=== PATIENT | male | born 1960 | race African-American/Black ===

== ENCOUNTER 2016-11-07 09:56 | Inpatient (IN) ==
[2016-11-07] MEDS ORDERED: methylPREDNISolone SOD SUC 125 MG/2 ML VIAL IV STA (10:44)
[2016-11-07] MEDS ORDERED: LEVOFLOXACIN INJ 500 MG in PREMIX 1 EACH IV STA (10:44)
[2016-11-07] MEDS ORDERED: ALBUTEROL/IPRATROPIUM 3 ML NEB RESP TX STA ×2 (10:44→12:06)
[2016-11-07 10:49] LABS: Basophils # 0.1 10*3/uL (0.0-0.2); Basophils % 0.5 % (0.0-0.8); Eosinophils % 0.4 % (0.00-10.9); Hematocrit 43.2 VOL% (42.0-52.0); Immature Granulocytes % 0.5 %; Immature Granulocytes Absolute 0.05 #; Lymphocytes # 1.7 10*3/uL (1.4-4.0); Lymphocytes % 15.9 % (21.2-54.2); Mean Corpuscular HGB Conc 32.4 GM/DL (32-36); Mean Corpuscular Hemoglobin 28 PG (27-34); Mean Corpuscular Volume 85.5 FL (87-102); Mean Platelet Volume 10.7 FL (9.6-12.0); Monocytes # 1.1 10*3/uL (0.11-0.8); Monocytes % 10.3 % (1.7-12.7); Neutrophils # 7.9 10*3/uL (1.4-7.4); Neutrophils % 72.4 % (38.7-73.9); Platelet Count 168 T/CUMM (130-400); Red Blood Count 5.05 MC/CUMM (3.8-5.5)
[2016-11-07] MEDS ORDERED: LEVOFLOXACIN INJ 100 ML IV ONE (10:50)
[2016-11-07] MEDS ORDERED: methylPREDNISolone SOD SUC 125 MG/2 ML VIAL ONE (10:50)
--- NOTE | 2016-11-07 10:50 | EKG Report ---
Stationary ECG Study [facility] ER Test Date: 11/07/2016 10:48:21 AM Pat Name: CLARK SALCEDO Department: Room: Gender: M Vp: : 1960 Requested by: Jason Chun Order Number: [id number] Reading MD: MOHINDER DONATO Intervals [place] Rate: 97 P: 83 TN: 136 QRS: 200 QRSD: 122 T: 97 QT: 342 QTc: 396 Interpretive Statements SINUS RHYTHM at 97 bpm INDETERMINATE AXIS RIGHT BUNDLE BRANCH BLOCK Electronically Signed On 11-10-16 12:22:50 CDT by MOHINDER DONATO [email or web address]
--- NOTE | 2016-11-07 11:22 | Emergency Department Note ---
David Valdez Manpreet, am scribing for, and in the presence of, Jason Brownlee MD 10:49. Kem Valdez Phillip K, MD, personally performed the services described in this documentation, ascribed by Stone Hernandez in my presence, and it is both accurate and complete . Arrival - Arrival Chief Complaint: Shortness of Breath Stated Complaint: trouble breathing,chills,sweats ED Nursing Triage Note: PT C/O BODY ACHES, CHILLS, SWEATS, AND DIFFICULTY BREATHING SINCE SATURDAY. AUDIBLE WHEEZING NOTED. Mode of Arrival: Ambulatory Limitations: No Limitations Source: Patient Time Seen by Provider: 11/07/16 10:18 - History of Present Illness HPI Narrative: Pt is a 56 y/o male, with PMHx of HTN, HLD, COPD, bronchitis, and GERD, who presents to the ED with CC of SOB onset 11/02/16 that has been worsening since. Pt also c/o M[place], cough, fever, diaphoresis, and back pain. Pt reports of taking breathing treatments at home qd but also continued smoking cigarettes. Pt recorded a body temperature of 98.8 F during triage. Pt's PCP is Dr. Carpenter. 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 No other pains/complaints reported to the ED. Onset (ago): day(s) (11/02/16) Consistency: constant Severity: mild Allergies/Adverse Reactions: Allergies Allergy/AdvReac Type Severity Reaction Status Date / Time No Known Allergies Allergy Verified 11/07/16 10:07 Home Medications: Home Medications Medication Instructions Recorded Confirmed Type Ipratropium/Albuterol Inhaler 2 puff INH BID 03/22/16 11/07/16 History [Combivent Respimat Inhaler] Albuterol Sulfate [Ventolin HFA] 2 puff INH BID 04/24/16 11/07/16 History Atorvastatin [Lipitor] 20 mg PO QAM 11/07/16 11/07/16 History Omeprazole [Prilosec] 20 mg PO QAM 11/07/16 11/07/16 History Sertraline [Zoloft] 100 mg PO QAM 11/07/16 11/07/16 History Tamsulosin [Flomax] 0.4 mg PO QAM 11/07/16 11/07/16 History Umeclidinium Brm/Vilanterol Tr 1 puff INH [facility] 11/07/16 11/07/16 History [Anoro Ellipta] amLODIPine [Norvasc] 5 mg PO [facility] 11/07/16 11/07/16 History Review of System - Review of System 12 point system: reviewed and no additional remarkable complaints except as stated - Review of System Constitutional: Present: chills, diaphoresis, fever Respiratory: Present: cough (Dry cough), respiratory distress, wheezing Cardiovascular: Present: dyspnea on exertion. Absent: chest pain Gastrointestinal: Absent: abdominal pain, nausea, vomiting, diarrhea Genitourinary male: Absent: dysuria Musculoskeletal: Present: back pain Neurological: Absent: headache, weakness, numbness, paresthesias Medical,Surgical,& Family Hx - Medical History Cardio: History of: Hypertension No history of: Cardiac Dysrhythmia, [place] Psychological: History of: Depression Neurology: No history of: Seizures Endocrine: History of: Dyslipidemia Respiratory: History of: Bronchitis, COPD No history of: Obstructive Sleep Apnea Genitourinary: No history of: Prostate Problems Gastrointestinal: History of: GERD, GI Problems (rectal bleeding) No history of: Hepatitis, Liver Problems Musculoskeletal: History of: Amputation (left bka from trauma), Musculoskeletal Problems (arthritis in shoulders and legs) Hematology: No history of: Anemia, Blood Transfusion Reaction Other: No history of: Anesthesia Reactions, Cancer - Surgical History Cardiac Surgeries: Patient Denies: Carotid Endarterectomy HEENT Surgeries: Patient denies: Carotid Endarterectomy, Eye Surgery, Tonsilectomy & Adenoidectomy Abdominal Surgeries: Patient denies: Appendectomy, Cholecystectomy, Hernia Repair - Family History Family History: Reports;: Family Cancer (uncle-lung,), Family Heart Disease ( mother, father) - Social History Smoking Status: Current every day smoker Frequency of Alcohol Use: Occasionally Type of Drug Use: None Exam Vital Signs: Vital Signs Temperature 98.0 F 11/07/16 10:45 Pulse Rate 98 H 11/07/16 12:24 Respiratory Rate 15 11/07/16 12:24 Blood Pressure 122/71 11/07/16 10:45 O2 Sat by Pulse Oximetry 98 11/07/16 12:24 - General General appearance: alert, in no apparent distress - Head Head exam: Present: atraumatic, normocephalic, normal inspection - Eye Eye exam: Present: normal appearance, PERRL, EOMI - ENT ENT exam: Present: normal exam, normal oropharynx, mucous membranes moist, TM's normal bilaterally - Neck Neck exam: Present: normal inspection, full ROM, trachea midline. Absent: tenderness - Chest Chest inspection: Present: normal inspection, symmetric chest wall rise. Absent : tenderness - Respiratory Respiratory exam: Present: respiratory distress, wheezes (Inspiratory and expiratory wheezes). Absent: normal lung sounds bilaterally - Cardiovascular Cardiovascular exam: Present: normal rhythm, tachycardia, normal heart sounds. Absent: murmur, rubs, gallop - Abdominal Exam Abdominal exam: Present: soft, normal bowel sounds. Absent: distention, tenderness, guarding - Extremities Exam Extremities exam: Present: normal inspection, full ROM. Absent: tenderness - Back Exam Back exam: Present: normal inspection, full ROM. Absent: tenderness - Neurological Exam Neurological exam: Present: alert, oriented X3, CN II-XII intact, reflexes normal - Psychiatric Psychiatric exam: Present: normal affect, normal mood - Skin Skin exam: Present: warm, dry, intact, normal color. Absent: pallor Course Course Narrative: Patient received IV steroids antibiotics and 2 nebulization treatments with minimal improvement in his bronchospasm. Patient continued to have wheezing with his oxygen saturation at 91. We will admit for further treatment. Results - Labs CBC & BMP: 11/07/16 10:34 11/07/16 10:34 Lab Results: I have reviewed the patients labs Labs: Laboratory Tests 11/07/16 10:34 WBC 11.0 RBC 5.05 Hgb 14.0 Hct 43.2 MCV 85.5 L MCH 28 MCHC 32.4 RDW 15.0 Plt Count 168 MPV 10.7 Lymph % (Auto) 15.9 L Neut # (Auto) 7.9 H Ramsey # (Auto) 1.1 H Laboratory Tests 11/07/16 10:34 WBC 11.0 RBC 5.05 Hgb 14.0 Hct 43.2 MCV 85.5 L MCH 28 MCHC 32.4 RDW 15.0 Plt Count 168 MPV 10.7 Lymph % (Auto) 15.9 L Neut # (Auto) 7.9 H Ramsey # (Auto) 1.1 H Laboratory Tests 11/07/16 10:34 Sodium 141 Potassium 3.6 Chloride 102 Carbon Dioxide 34 H Anion Gap 8.6 BUN 8 Creatinine 0.70 GFR Calculation 151 BUN/Creatinine Ratio 11.00 Glucose 135 H Calculated Osmolality 280.3 Calcium 8.3 L Magnesium 1.6 L AST 16 Alkaline Phosphatase 141 H Albumin 3.3 L Albumin/Globulin Ratio 1.0 L - EKG EKG results: interpreted by KOBE, sinus rhythm (Right bundle branch block) - Diagnostic Findings Procedure: Chest x-ray: report reviewed by me ("Chest X-ray: Chronic lung changes. No acute process or significant change.") Disposition Clinical Impression: Acute exacerbation of chronic obstructive airways disease, Bronchitis, Hypoxia Case discussed with: patient Disposition: Still a Patient Condition: Guarded Additional Instructions: Admit to the hospitalist.
[2016-11-07 11:24] LABS: Albumin 3.3 G/DL (3.4-5.0); Bilirubin,Total 0.5 MG/DL (0.2-1.0); Calcium 8.3 MG/DL (8.5-10.1); Magnesium 1.6 MG/DL (1.8-2.4); Osmolality,Calculated 280.3 MOS/KG (273-304); Potassium 3.6 MMOL/L (3.5-5.1); Total Protein 6.6 G/DL (6.4-8.3)
--- NOTE | 2016-11-07 11:37 | XRay Report ---
XR chest 1V portable Indication: Shortness of breath Comparison: 24 April 2016 Findings: The heart and mediastinum are normal in size and configuration. The pulmonary vascularity is normal in caliber. Lung volumes are increased with prominent bronchial markings. No lung infiltrates, effusions, pneumothorax or other abnormality is demonstrated. Impression: Chronic lung changes. No acute process or significant change. PROCEDURE INTERPRETED AT [facility]PARTMENT OF RADIOLOG[facility] Final Report Signed by: Dr. Fausto Wahl
[2016-11-07] MEDS ORDERED: ALBUTEROL 2.5 MG/3 ML NEB RESP TX PRN (13:52)
--- NOTE | 2016-11-07 13:59 | Hospitalist Progress Note ---
Exam - Constitutional Vitals: Period Temp Pulse Resp BP Sys/Love Pulse Ox Last 24 Hr 98.0 F-98.8 F 90-108 14-22 122-131/71-81 85-98 Results - Labs CBC & BMP: 11/07/16 10:34 11/07/16 10:34
--- NOTE | 2016-11-07 14:07 | Hospitalist History & Physical ---
Assessment and Plan (1) Acute exacerbation of chronic obstructive airways disease Status: Acute Assessment and plan: The patient has reported current nicotine use despite the subsequent diagnosis of chronic pulmonary obstructive disease. At the time of ED presentation, the patient was noted to be experiencing profound respiratory distress. Multiple prolonged bronchodilator treatments were initiated however, the patient continued to experience bronchospasms. We will start empiric antibiotic coverage, inhaled bronchodilators, and intravenous corticosteroids. In addition , we will order CTA of chest for further evaluation. Current Visit: Yes (2) Nicotine addiction Status: Acute Assessment and plan: The patient reports current nicotine use. He reports that he smoked 2 cigarettes this morning prior to presentation despite the severity of his current respiratory state. Spoke with the patient in great detail and discussed the merits of smoking necessitation. A nicotine patch has been ordered as needed for patient use. Current Visit: Yes Qualifiers: Nicotine product type: cigarettes History of Present Illness Chief complaint: shortness of breath History of present illness: This is a very pleasant 56-year-old male that presented to the ED at [facility] this morning for the evaluation of shortness of breath. Patient has a medical history significant for hypertension, hyperlipidemia, chronic obstructive pulmonary disease, nicotine addiction, traumatic amputation of the left lower extremity, bronchitis, gastroesophageal reflux disease, benign prostatic hypertrophy, and depression. The patient denied any pertinent surgical history at the time of ED presentation. The patient reported the onset of symptoms 2 days prior to presentation. He reported that he developed some shortness of breath with cough, fever, diaphoresis, back pain, and dyspnea on exertion. The patient reports that he is a current cigarette smoker and reports that he last smoked 2 cigarettes this morning. He reports that he took multiple breathing treatments however, his symptoms fail to improve. His symptoms became severe prompting him to present to the ED for further evaluation. The patient was assessed at the time of ED presentation. At the time of presentation, the patient was noted to be experiencing a degree of respiratory distress. The patient was given prolonged inhaled bronchodilator treatments however, his O2 saturations only increased to 90%. Labs were obtained which were significant for carbon dioxide 34, glucose 135, calcium 8.3, magnesium 1.6 , alkaline phosphatase 141, and albumin 3.3. Chest x-ray significant for chronic lung changes however, no acute cardiopulmonary processes were noted. After brief discussion with both Dr. Brownlee and Dr. Kinney, the patient will be admitted to the hospitalist service for continuation of care. Home medications have been reviewed and reconciled. CODE STATUS discussed; patient is a FULL CODE. Home Medications Medication Instructions Recorded Confirmed Type Ipratropium/Albuterol Inhaler 2 puff INH BID 03/22/16 11/07/16 History [Combivent Respimat Inhaler] Albuterol Sulfate [Ventolin HFA] 2 puff INH BID 04/24/16 11/07/16 History Atorvastatin [Lipitor] 20 mg PO QAM 11/07/16 11/07/16 History Omeprazole [Prilosec] 20 mg PO QAM 11/07/16 11/07/16 History Sertraline [Zoloft] 100 mg PO QAM 11/07/16 11/07/16 History Tamsulosin [Flomax] 0.4 mg PO QAM 11/07/16 11/07/16 History Umeclidinium Brm/Vilanterol Tr 1 puff INH QAM 11/07/16 11/07/16 History [Anoro Ellipta] amLODIPine [Norvasc] 5 mg PO QAM 11/07/16 11/07/16 History Allergies Allergy/AdvReac Type Severity Reaction Status Date / Time No Known Allergies Allergy Verified 11/07/16 10:07 Medical,Surgical,& Family Hx - Medical History Cardio: History of: Hypertension No history of: Cardiac Dysrhythmia, [place] Psychological: History of: Depression Neurology: No history of: Seizures Endocrine: History of: Dyslipidemia Respiratory: History of: Bronchitis, COPD No history of: Obstructive Sleep Apnea Genitourinary: No history of: Prostate Problems Gastrointestinal: History of: GERD, GI Problems (rectal bleeding) No history of: Hepatitis, Liver Problems Musculoskeletal: History of: Amputation (left bka from trauma), Musculoskeletal Problems (arthritis in shoulders and legs) Hematology: No history of: Anemia, Blood Transfusion Reaction Other: No history of: Anesthesia Reactions, Cancer - Surgical History Cardiac Surgeries: Patient Denies: Carotid Endarterectomy HEENT Surgeries: Patient denies: Carotid Endarterectomy, Eye Surgery, Tonsilectomy & Adenoidectomy Abdominal Surgeries: Patient denies: Appendectomy, Cholecystectomy, Hernia Repair - Family History Family History: Reports;: Family Cancer (uncle-lung,), Family Heart Disease ( mother, father) - Social History Smoking Status: Current every day smoker Have you smoked in the last 12 months: Yes Time spent discussing smoking cessation with patient: 3 to 10 minutes Frequency of Alcohol Use: Occasionally Type of Drug Use: None Marital Status: Single Lives With:: Alone Functional capacity: independent ambulation 12 point system: reviewed and no additional remarkable complaints except as stated Exam - Constitutional Vitals: Period Temp Pulse Resp BP Sys/Love Pulse Ox Last 24 Hr 98.0 F-98.8 F 90-108 14-22 122-131/71-81 85-98 General appearance: over weight - Head Head exam: Present: normal inspection, normocephalic, atraumatic - Eye Eye exam: Present: EOMI. Absent: conjunctival injection Pupils: Present: PAYTON, normal accommodation - ENT ENT exam: Present: normal exam, normal external ear exam, normal oropharynx - Neck Neck exam: Present: normal inspection. Absent: lymphadenopathy, meningismus, tenderness, thyromegaly - Respiratory Respiratory exam: Present: accessory muscle use, wheezes. Absent: prolonged expiratory phase, rales, rhonchi, stridor - Cardiovascular Cardiovascular exam: Present: regular rate and rhythm. Absent: carotid bruit, diastolic murmur, gallop, JVD, rubs, systolic murmur - GI/Abdominal GI/Abdominal exam: Present: normal bowel sounds, soft - Extremities Exam Extremities exam: Present: other (Left BKA). Absent: normal inspection (Left BKA), edema - Back Exam Back exam: Present: normal inspection - Neurological Exam Neurological exam: Present: alert, oriented X3, CN II-XII intact - Psychiatric Psychiatric exam: Present: normal affect, normal mood - Skin Skin exam: Present: normal color, warm, dry Results - Labs CBC & BMP: 11/07/16 10:34 11/07/16 10:34 Lab Results: I have reviewed the past 24 hour labs
[2016-11-07] MEDS ORDERED: MAGNESIUM SULF RIDER 4 GM in PREMIX 1 EACH IV PRN (14:39)
[2016-11-07] MEDS ORDERED: MAGNESIUM SULF RIDER 2 GM in PREMIX 1 EACH IV PRN (14:39)
[2016-11-07] MEDS ORDERED: POTASSIUM CHLORIDE RIDER 10 MEQ in PREMIX 1 EACH IV PRN (14:39)
--- NOTE | 2016-11-07 14:44 | CT Report ---
CT chest pulmonary embolism Indication: Shortness of breath Comparison: Chest x-ray same day Technique: Axial CT imaging of the chest is performed with intravenous contrast. Contrast dose is 80 cc of Omnipaque 350. Findings: No thrombus or other abnormality is identified in the pulmonary arteries or veins. The pulmonary vessel caliber is within normal limits. There is either small hiatal or paraesophageal hernia present. Otherwise the heart, mediastinum and great vessels appear within normal limits. Chronic changes are present most prominent in the right upper lobe. There is a small nodular density in the right upper lobe that measures up to 9.9 cm. Small amount of chronic cystic changes also present in the right lower lobe. There are scattered areas of faint airspace density are present in the lower lobes more prominent on the left. Lung parenchyma shows no evidence of airspace disease or abnormal density. No effusion or pneumothorax is present. Impression: No evidence of pulmonary thromboembolism. Faint areas of airspace density most prominent in the left lower lobe could indicate pneumonia. Chronic lung changes with a nodular density in the right upper lobe measuring 9.9 mm in size. Recommend 3-4 month follow-up study. This CT exam was performed using one or more the following dose reduction techniques: Automated exposure control, adjustment of the MA and/or KV according to patient size, or use of iterative reconstruction technique. PROCEDURE INTERPRETED AT [facility] DEPARTMENT OF RADIOLOGY Final Report Signed by: Dr. Fausto Wahl
[2016-11-07 15:54] LABS: ABG Base Excess 5.7 MMOL/L (-2.5-2.5); ABG HCO3 29.3 MMOL/L (20-26); ABG Oxygen Saturation 85.2 % (95-100); ABG PCO2 59.6 MM HG (35-48); ABG PH 7.358 (7.35-7.45); ABG PO2 52.5 MM HG (80-95); ABG TCO2 29.1 MMOL/L (23-27); Allen Test Positive
[2016-11-07] MEDS ORDERED: PANTOPRAZOLE 40 MG TABLET PO SCH (16:00)
--- NOTE | 2016-11-07 17:09 | Event Note ---
Patient seen and examined and chart reviewed. 56-year-old male with history of COPD but not on home oxygen, admitted with cough wheezing shortness of breath and acute on chronic COPD exacerbation. He had some bilateral wheezing and rhonchi on auscultation. Unfortunately he continues smoke about a pack a day. CT scan of the chest was suggestive of pneumonia. He has been started on bronchodilators steroids antibiotics. I gave him extensive counseling to quit smoking, he has agreed to try nicotine patch. I concur with the history and physical and assessment and plan.
[2016-11-07] MEDS: NICOTINE 21 MG/24 HR PATCH TRANSDERM SCH (17:40)
[2016-11-07] MEDS: methylPREDNISolone SOD SUC 40 MG/1 ML VIAL IV SCH (21:10)
[2016-11-08] MEDS: methylPREDNISolone SOD SUC 40 MG/1 ML VIAL IV SCH ×4 (03:12→21:26)
[2016-11-08 06:39] LABS: Basophils % 0.1 % (0.0-0.8); Hematocrit 45.8 VOL% (42.0-52.0); Hemoglobin 14.7 GM/DL (14.0-18.0); Immature Granulocytes % 0.7 %; Immature Granulocytes Absolute 0.11 #; Lymphocytes # 1.2 10*3/uL (1.4-4.0); Lymphocytes % 8.2 % (21.2-54.2); Mean Corpuscular HGB Conc 32.1 GM/DL (32-36); Mean Corpuscular Hemoglobin 28 PG (27-34); Mean Corpuscular Volume 85.9 FL (87-102); Mean Platelet Volume 10.7 FL (9.6-12.0); Monocytes # 0.4 10*3/uL (0.11-0.8); Monocytes % 2.4 % (1.7-12.7); Neutrophils % 88.6 % (38.7-73.9); Platelet Count 198 T/CUMM (130-400); Red Blood Count 5.33 MC/CUMM (3.8-5.5); White Blood Count 14.7 T/CUMM (4-12)
[2016-11-08 07:00] LABS: Phosphorous 3.4 MG/DL (2.5-4.9)
[2016-11-08 07:02] LABS: Albumin 3.3 G/DL (3.4-5.0); Bilirubin,Total 0.9 MG/DL (0.2-1.0); Calcium 8.7 MG/DL (8.5-10.1); Osmolality,Calculated 284.3 MOS/KG (273-304); Potassium 3.3 MMOL/L (3.5-5.1); Total Protein 6.8 G/DL (6.4-8.3)
--- NOTE | 2016-11-08 07:05 | XRay Report ---
Exam: XR chest 1V Date: 11/08/2016 4:00 AM Indication: Shortness of breath Comparison: 11/07/2016 Technical: AP Findings: Cardiomegaly present. Patchy interstitial densities are present in the basilar regions with underlying reticular nodular densities bilaterally. Mediastinum is intact. There is no evidence of pneumothorax. Bony structures are otherwise unremarkable. Impression: 1. Mild cardiomegaly with patchy interstitial infiltrates present in the basilar regions superimposed on chronic lung disease and reticular nodular densities suggest old granuloma changes. PROCEDURE INTERPRETED AT [facility] DEPARTMENT OF RADIOLOGY Final Report Signed by: Dr. Ozzie Liriano
[2016-11-08] MEDS: TAMSULOSIN 0.4 MG CAPSULE PO SCH (09:24)
[2016-11-08] MEDS: SERTRALINE 100 MG TABLET PO SCH (09:24)
[2016-11-08] MEDS: amLODIPine 5 MG TABLET PO SCH (09:24)
[2016-11-08] MEDS: ATORVASTATIN 20 MG TABLET PO SCH (09:24)
[2016-11-08] MEDS: PANTOPRAZOLE 40 MG TABLET PO SCH (09:25)
[2016-11-08] MEDS: NICOTINE 21 MG/24 HR PATCH TRANSDERM SCH (09:25)
[2016-11-08] MEDS: LEVOFLOXACIN INJ 500 MG in PREMIX 1 EACH IV SCH (10:29)
--- NOTE | 2016-11-08 11:29 | Hospitalist Progress Note ---
Assessment and Plan (1) Acute exacerbation of chronic obstructive airways disease Status: Acute Assessment and plan: The patient has reported current nicotine use despite the subsequent diagnosis of chronic pulmonary obstructive disease. At the time of ED presentation, the patient was noted to be experiencing profound respiratory distress. Multiple prolonged bronchodilator treatments were initiated however, the patient continued to experience bronchospasms. We will start empiric antibiotic coverage, inhaled bronchodilators, and intravenous corticosteroids. In addition , we will order CTA of chest for further evaluation. 11/08-CT chest on yesterday significant for no evidence of pulmonary thromboembolism however, faint areas of air density space most prominent in the left lower lobe is highly suspicious for pneumonia. In addition, chronic lung changes with a nodular density in the right upper lobe measuring 9.9 mm in size was noted. Empiric antibiotic coverage, inhaled bronchodilators, and intravenous corticosteroids were initiated. We will continue treatment as previously ordered and provide supportive care. Current Visit: Yes (2) Nicotine addiction Status: Acute Assessment and plan: The patient reports current nicotine use. He reports that he smoked 2 cigarettes this morning prior to presentation despite the severity of his current respiratory state. Spoke with the patient in great detail and discussed the merits of smoking necessitation. A nicotine patch has been ordered as needed for patient use. Current Visit: Yes Qualifiers: Nicotine product type: cigarettes (3) Hypokalemia Status: Acute Assessment and plan: Potassium was noted at 3.3 today. We will order the potassium replacement protocol, correct deficit, and recheck CMP in a.m. Current Visit: Yes Hospitalist: Subjective Interval history: Patient seen and evaluated; chart reviewed. No significant overnight events reported per staff. CT chest on yesterday reported probable pneumonia. Exam - Constitutional Vitals: Period Temp Pulse Resp BP Sys/Love Pulse Ox Last 24 Hr 96.4 F-98.4 F 74-98 15-27 114-142/59-89 90-98 General appearance: over weight - Head Head exam: Present: normal inspection, normocephalic, atraumatic - Eye Eye exam: Present: EOMI. Absent: conjunctival injection Pupils: Present: PAYTON, normal accommodation - ENT ENT exam: Present: normal exam, normal external ear exam, normal oropharynx - Neck Neck exam: Present: normal inspection. Absent: lymphadenopathy, meningismus, tenderness, thyromegaly - Respiratory Respiratory exam: Present: clear to auscultation bilaterally, wheezes. Absent: accessory muscle use, chest wall tenderness, rales, rhonchi, stridor - Cardiovascular Cardiovascular exam: Present: regular rate and rhythm. Absent: carotid bruit, diastolic murmur, gallop, JVD, systolic murmur - GI/Abdominal GI/Abdominal exam: Present: normal bowel sounds, soft - Extremities Exam Extremities exam: Present: normal inspection, other (Left BKA) - Back Exam Back exam: Present: normal inspection - Neurological Exam Neurological exam: Present: alert, oriented X3, CN II-XII intact - Psychiatric Psychiatric exam: Present: normal affect, normal mood - Skin Skin exam: Present: normal color, warm, dry Results - Labs CBC & BMP: 11/08/16 06:06 11/08/16 06:06 Lab Results: I have reviewed the past 24 hour labs Specialty Discharge - Follow Up or Referrals
[2016-11-08] MEDS: ALBUTEROL/IPRATROPIUM 3 ML NEB RESP TX SCH ×2 (12:57→20:14)
[2016-11-08] MEDS ORDERED: POTASSIUM CHLORIDE 20 MEQ TABLET PO ONE (21:55)
[2016-11-09] MEDS: ALBUTEROL/IPRATROPIUM 3 ML NEB RESP TX SCH ×3 (00:40→13:52)
[2016-11-09] MEDS: methylPREDNISolone SOD SUC 40 MG/1 ML VIAL IV SCH ×4 (02:32→21:26)
[2016-11-09 03:15] LABS: Basophils % 0.1 % (0.0-0.8); Hemoglobin 13.5 GM/DL (14.0-18.0); Immature Granulocytes % 1.7 %; Immature Granulocytes Absolute 0.27 #; Lymphocytes % 6.3 % (21.2-54.2); Mean Corpuscular HGB Conc 31.4 GM/DL (32-36); Mean Corpuscular Hemoglobin 27 PG (27-34); Mean Corpuscular Volume 86.2 FL (87-102); Mean Platelet Volume 10.6 FL (9.6-12.0); Monocytes # 0.6 10*3/uL (0.11-0.8); Neutrophils # 13.7 10*3/uL (1.4-7.4); Neutrophils % 87.9 % (38.7-73.9); Platelet Count 198 T/CUMM (130-400); Red Blood Count 4.99 MC/CUMM (3.8-5.5); Red Cell Distribution Width 14.9 % (9.3-17.3); White Blood Count 15.6 T/CUMM (4-12)
[2016-11-09 03:49] LABS: Albumin 3.3 G/DL (3.4-5.0); Bilirubin,Total 0.7 MG/DL (0.2-1.0); Calcium 9.1 MG/DL (8.5-10.1); Osmolality,Calculated 289.3 MOS/KG (273-304); Phosphorous 3.8 MG/DL (2.5-4.9); Potassium 3.7 MMOL/L (3.5-5.1); Total Protein 6.4 G/DL (6.4-8.3)
--- NOTE | 2016-11-09 07:07 | Physician Query Form ---
CLICK EDIT DOCUMENT TO SELECT QUERY ANSWER --> OK --> SIGN Fernanda Davies RN, CCDS Certified Clinical Volleyball Commentator W) [phone] (f) [phone] [email or web address] PROVIDERS: Make your selection(s) from the choices in EACH section by typing an "x" and enter comments in the comment section. Please use your independent medical judgment in providing your response. This request does not imply that any particular answer is desired or expected. CLINICAL INDICATORS: (Providers should not edit this section) The medical record indicates that the patient was admitted with COPD exacerbation, "hypoxia", "respiratory distress, wheezes (Inspiratory and expiratory wheezes)", pCO2 59.6#, p02 52.5, ph 7.358 and the patient was treated with 2 liters per NC. "NOT on home oxygen". If possible, please further clarify the type and acuity of respiratory diagnosis : ACUITY: ( ) Acute ( ) Chronic ( x) Acute on Chronic TYPE: ( ) Respiratory failure with hypoxia ( x) Respiratory failure with hypercapnia ( ) Respiratory Arrest ( ) Postprocedural/postoperative respiratory failure ( ) Respiratory Insufficiency ( ) ARDS (Adult/Acute Respiratory Distress Syndrome) ( ) Other, please specify: ( ) Clinically unable to determine Recognized criteria for respiratory failure PH <7.35 or >7.45 PO2 <60 PCO2 >50 RR >24 O2 Sat <90% on RA or <95% on O2 Use of accessory muscles Unable to speak in full sentences Intubation is not required COMMENTS: PLEASE ALSO DOCUMENT RESPONSE IN PROGRESS NOTES AND/OR DISCHARGE SUMMARY Use of terms such as suspected, likely, or probable (associated with a specific diagnosis that is being evaluated, monitored, or treated as if it exists) are acceptable and can be restated in the discharge summary if not ruled out. MTDD
--- NOTE | 2016-11-09 07:46 | XRay Report ---
XR chest 1V portable Indication: COPD Comparison: 08 November 2016 Findings: The heart and mediastinum are normal in size and configuration. The pulmonary vascularity is normal in caliber. Lung volumes are increased with prominent bronchial markings. No lung infiltrates, effusions, pneumothorax or other abnormality is demonstrated. Impression: Chronic lung changes. No acute process or significant change. PROCEDURE INTERPRETED AT [facility] DEPARTMENT OF RADIOLOGY Final Report Signed by: Dr. Fausto Wahl
--- NOTE | 2016-11-09 08:28 | Hospitalist Progress Note ---
Assessment and Plan (1) Acute exacerbation of chronic obstructive airways disease Status: Acute Assessment and plan: The patient has reported current nicotine use despite the subsequent diagnosis of chronic pulmonary obstructive disease. At the time of ED presentation, the patient was noted to be experiencing profound respiratory distress. Multiple prolonged bronchodilator treatments were initiated however, the patient continued to experience bronchospasms. We will start empiric antibiotic coverage, inhaled bronchodilators, and intravenous corticosteroids. In addition , we will order CTA of chest for further evaluation. 11/08-CT chest on yesterday significant for no evidence of pulmonary thromboembolism however, faint areas of air density space most prominent in the left lower lobe is highly suspicious for pneumonia. In addition, chronic lung changes with a nodular density in the right upper lobe measuring 9.9 mm in size was noted. Empiric antibiotic coverage, inhaled bronchodilators, and intravenous corticosteroids were initiated. We will continue treatment as previously ordered and provide supportive care. 11/09-chest x-ray remains unchanged. We will continue empiric antibiotic coverage, inhaled bronchodilators, intravenous corticosteroids. We will consult pulmonology to evaluate. Current Visit: Yes (2) Nicotine addiction Status: Acute Assessment and plan: The patient reports current nicotine use. He reports that he smoked 2 cigarettes this morning prior to presentation despite the severity of his current respiratory state. Spoke with the patient in great detail and discussed the merits of smoking necessitation. A nicotine patch has been ordered as needed for patient use. Current Visit: Yes Qualifiers: Nicotine product type: cigarettes (3) Hypokalemia Status: Acute Assessment and plan: Potassium was noted at 3.3 today. We will order the potassium replacement protocol, correct deficit, and recheck CMP in a.m. 11/09-potassium normalized today at 3.7. Current Visit: Yes Hospitalist: Subjective Interval history: Patient seen and examined; chart reviewed. No significant overnight events reported per staff. Chest x-ray remains unchanged. We will continue supportive care as previously ordered. Exam - Constitutional Vitals: Period Temp Pulse Resp BP Sys/Love Pulse Ox Last 24 Hr 97.4 F-98.2 F 74-99 15-22 113-162/57-80 94-99 General appearance: no acute distress, over weight - Head Head exam: Present: normal inspection, normocephalic, atraumatic - Eye Eye exam: Present: EOMI. Absent: conjunctival injection Pupils: Present: PAYTON, normal accommodation - ENT ENT exam: Present: normal exam, normal external ear exam, normal oropharynx - Neck Neck exam: Present: normal inspection. Absent: lymphadenopathy, meningismus, tenderness, thyromegaly - Respiratory Respiratory exam: Present: rhonchi. Absent: chest wall tenderness, decreased breath sounds - Cardiovascular Cardiovascular exam: Present: regular rate and rhythm. Absent: carotid bruit, diastolic murmur, gallop, JVD, rubs, systolic murmur - GI/Abdominal GI/Abdominal exam: Present: normal bowel sounds, soft - Extremities Exam Extremities exam: Present: other (Left BKA) - Back Exam Back exam: Present: normal inspection - Neurological Exam Neurological exam: Present: alert, oriented X3, CN II-XII intact - Psychiatric Psychiatric exam: Present: normal affect, normal mood - Skin Skin exam: Present: normal color, warm, dry Results - Labs CBC & BMP: 11/09/16 02:30 11/09/16 02:30 Lab Results: I have reviewed the past 24 hour labs Specialty Discharge - Follow Up or Referrals
[2016-11-09] MEDS: amLODIPine 5 MG TABLET PO SCH (10:40)
[2016-11-09] MEDS: TAMSULOSIN 0.4 MG CAPSULE PO SCH (10:40)
[2016-11-09] MEDS: PANTOPRAZOLE 40 MG TABLET PO SCH (10:40)
[2016-11-09] MEDS: SERTRALINE 100 MG TABLET PO SCH (10:40)
[2016-11-09] MEDS: ATORVASTATIN 20 MG TABLET PO SCH (10:40)
[2016-11-09] MEDS: NICOTINE 21 MG/24 HR PATCH TRANSDERM SCH (10:41)
[2016-11-09] MEDS: LEVOFLOXACIN INJ 500 MG in PREMIX 1 EACH IV SCH (11:00)
[2016-11-10] MEDS: ALBUTEROL/IPRATROPIUM 3 ML NEB RESP TX SCH ×5 (01:03→19:24)
[2016-11-10] MEDS: methylPREDNISolone SOD SUC 40 MG/1 ML VIAL IV SCH ×4 (03:55→20:58)
[2016-11-10] MEDS: NICOTINE 21 MG/24 HR PATCH TRANSDERM SCH (08:05)
[2016-11-10] MEDS: TAMSULOSIN 0.4 MG CAPSULE PO SCH (08:06)
[2016-11-10] MEDS: PANTOPRAZOLE 40 MG TABLET PO SCH (08:06)
[2016-11-10] MEDS: amLODIPine 5 MG TABLET PO SCH (08:07)
[2016-11-10] MEDS: ATORVASTATIN 20 MG TABLET PO SCH (08:07)
[2016-11-10] MEDS: SERTRALINE 100 MG TABLET PO SCH (08:07)
[2016-11-10] MEDS: LEVOFLOXACIN INJ 500 MG in PREMIX 1 EACH IV SCH (08:10)
--- NOTE | 2016-11-10 08:17 | Hospitalist Progress Note ---
Assessment and Plan (1) Acute exacerbation of chronic obstructive airways disease Status: Acute Assessment and plan: Impression: 1. COPD with acute exacerbation Plan: Continue current care. Add nebulized N-acetylcysteine. Continue mobilization as he tolerates. Physical therapy to evaluate. This note was completed using [employer] voice recognition software. There may be contract administrator errors as a result. Current Visit: Yes Hospitalist: Subjective Interval history: Follow-up COPD with acute exacerbation. The patient reports some ongoing chest and sinus congestion. He says that he is not able to get his lungs or his sinuses cleared. He continues wheezing. He says that he is not back to baseline with regard to activity. He reports dyspnea when he gets up to the bathroom. Usually, he is able to walk up his stairs at home. Exam - Constitutional Vitals: Period Temp Pulse Resp BP Sys/Love Pulse Ox Last 24 Hr 96.5 F-98 F 64-89 16-21 115-163/64-88 90-99 Vital signs are noted above. Heart is regular with distant tones and no murmur or gallop. He has a prolonged expiratory phase, with some expiratory wheezes. I do not hear any rales. Abdomen is obese and soft with good bowel sounds. He is awake and alert Results - Labs CBC & BMP: 11/09/16 02:30 11/09/16 02:30 Lab Results: I have reviewed the past 24 hour labs Specialty Discharge - Follow Up or Referrals
[2016-11-10] MEDS: ACETYLCYSTEINE 20% 800 MG/4 ML VIAL RESP TX SCH ×2 (14:40→19:24)
[2016-11-11] MEDS: ACETYLCYSTEINE 20% 800 MG/4 ML VIAL RESP TX SCH ×4 (00:23→19:14)
[2016-11-11] MEDS: ALBUTEROL/IPRATROPIUM 3 ML NEB RESP TX SCH ×4 (00:24→19:12)
[2016-11-11] MEDS: methylPREDNISolone SOD SUC 40 MG/1 ML VIAL IV SCH ×4 (03:03→22:08)
--- NOTE | 2016-11-11 08:17 | Hospitalist Progress Note ---
Assessment and Plan (1) Acute exacerbation of chronic obstructive airways disease Status: Acute Assessment and plan: Impression: 1. COPD with acute exacerbation Plan: Continue current care. Continue mobilization as he tolerates. Physical therapy has been consulted; apparently, they do not work on the weekends. This note was completed using [employer] voice recognition software. There may be internet marketing coordinator errors as a result. Current Visit: Yes Hospitalist: Subjective Interval history: Follow-up COPD with acute exacerbation. The patient says that he is still dyspneic with class III activity. Prior to coming in the hospital, he worked as a ready mix truck driver. He says that his employer is actually who persuaded him to come to the hospital. He again does not have much sputum. Exam - Constitutional Vitals: Period Temp Pulse Resp BP Sys/Love Pulse Ox Last 24 Hr 97.3 F-97.8 F 69-95 20-22 130-144/64-94 92-98 Vital signs are noted above. Heart is regular with distant tones and no murmur. He has a prolonged expiratory phase with some expiratory wheezes. He is awake and alert. Results - Labs CBC & BMP: 11/09/16 02:30 11/09/16 02:30 Specialty Discharge - Follow Up or Referrals
[2016-11-11] MEDS: amLODIPine 5 MG TABLET PO SCH (09:20)
[2016-11-11] MEDS: TAMSULOSIN 0.4 MG CAPSULE PO SCH (09:20)
[2016-11-11] MEDS: NICOTINE 21 MG/24 HR PATCH TRANSDERM SCH (09:20)
[2016-11-11] MEDS: ATORVASTATIN 20 MG TABLET PO SCH (09:20)
[2016-11-11] MEDS: SERTRALINE 100 MG TABLET PO SCH (09:20)
[2016-11-11] MEDS: PANTOPRAZOLE 40 MG TABLET PO SCH (09:20)
[2016-11-11] MEDS: LEVOFLOXACIN INJ 500 MG in PREMIX 1 EACH IV SCH (09:21)
[2016-11-12] MEDS: ALBUTEROL/IPRATROPIUM 3 ML NEB RESP TX SCH ×2 (00:35→07:42)
[2016-11-12] MEDS: ACETYLCYSTEINE 20% 800 MG/4 ML VIAL RESP TX SCH ×2 (00:35→07:42)
[2016-11-12] MEDS: methylPREDNISolone SOD SUC 40 MG/1 ML VIAL IV SCH ×2 (03:26→10:49)
[2016-11-12 08:05] VITALS: BP 141/93
[2016-11-12] MEDS: LEVOFLOXACIN INJ 500 MG in PREMIX 1 EACH IV SCH (10:41)
[2016-11-12] MEDS: PANTOPRAZOLE 40 MG TABLET PO SCH (10:43)
[2016-11-12] MEDS: SERTRALINE 100 MG TABLET PO SCH (10:43)
[2016-11-12] MEDS: amLODIPine 5 MG TABLET PO SCH (10:43)
[2016-11-12] MEDS: ATORVASTATIN 20 MG TABLET PO SCH (10:43)
[2016-11-12] MEDS: TAMSULOSIN 0.4 MG CAPSULE PO SCH (10:44)
[2016-11-12] MEDS: NICOTINE 21 MG/24 HR PATCH TRANSDERM SCH (10:44)
--- NOTE | 2016-11-12 11:08 | Discharge Summary ---
<Ward Reece - Last Filed: 11/12/16 10:30> Hospital Course - Hospital Course Hospital Course: Mr. Rivera is a 56-year-old male who presented to the ED on 11/07/2016 for further evaluation of shortness of breath. Patient does have a past medical history significant for hypertension, hyperlipidemia, COPD, tobacco abuse, traumatic amputation of left lower extremity, bronchitis, GERD, BPH and depression. At the time of the ED presentation, the patient was experiencing respiratory distress and given several breathing treatments with inhaled bronchodilators however is felt to saturation is only increased to 90%. Lab work revealed CO2 34, glucose 135 with a chest x-ray significant for chronic lung changes. CT of the chest was suggestive of pneumonia. Patient was counseled extensively on tobacco use and smoking cessation, and the patient agreed to use a nicotine patch while hospitalized. Hospital medicine was consulted and the patient was admitted for continuation of care. He was started on empiric antibiotic coverage with Levaquin 500 mg Q24H, inhaled bronchodilators, and IV corticosteroids. Repeat CXRs remained unchanged but showed only chronic changes; however, the patient's breathing did improve with the treatment plan. The remainder of his hospital course was relatively uncomplicated. At this time, he has reached maximum benefit from hospitalization and is stable for discharge. He should follow up with his PCP in 1-2 weeks. He will require a nebulizer for home and oxygen of 2 liters. Patient seen and examined. Hospital course reviewed and edited. - Time spent with patient Time with patient DS: Greater than 30 minutes Time spent discussing smoking cessation with patient: more than 10 minutes Specialty Discharge - Follow Up or Referrals Discharge Plan - Discharge Data Disposition: Disch To Home/Self Care - Discharge Medications New Albuterol/Ipratropium Neb [Duoneb] 3 ml RESP TX RT Q6H #120 vial Nicotine 21 mg/24 Hr Patch [Nicoderm CQ 21 mg/24 hr Patch] 1 patch TRANSDERM DAILY #42 patch predniSONE TAB [PredniSONE] 20 mg PO DAILY #20 tablet Amoxicillin/Clav Tab [Augmentin Tab] 875 mg PO BID #10 tablet Continue Atorvastatin [Lipitor] 20 mg PO QAM Omeprazole [Prilosec] 20 mg PO QAM Tamsulosin [Flomax] 0.4 mg PO QAM Ipratropium/Albuterol Inhaler [Combivent Respimat Inhaler] 2 puff INH BID #1 inhaler Umeclidinium Brm/Vilanterol Tr [Anoro Ellipta] 1 puff INH QAM #1 inhaler amLODIPine [Norvasc] 5 mg PO QAM Sertraline [Zoloft] 100 mg PO QAM Albuterol Sulfate [Ventolin HFA] 2 puff INH BID #1 inhaler - Follow Up or Referral Follow Up: Reji Gonsalves MD [Physician] - 2 Weeks pmddr [Other] - 1 Week - Forms/Instructions Instructions: COPD, Office Rep (GEN), COPD Exacerbation, Office Rep ( GEN) Exam - Constitutional Vitals: Period Temp Pulse Resp BP Sys/Love Pulse Ox Last 24 Hr 96.8 F-97.6 F 58-84 16-22 133-154/69-93 92-100 DS: Provider Date of admission: 11/07/16 13:38 Primary care physician: Mariola Mcguire DO Attending physician on admission: Rosa Kinney MD Consults: 11/07/16 13:52 Consult to Pulmonary Rehabilitation [CONS] Routine Reason for Pulmonary Rehabilitation: COPD 11/10/16 08:17 Consult to Physical Therapy [CONS] Routine Reason for Physical Therapy: Evaluate and Treat 11/12/16 11:03 Consult to Case Mgmt/Social Srvs [CONS] Routine Reason for Case Mgmt/Social Srvs: Equipment Home Health Consult Comment: home o2 Discharging clinician: Ward CARR Expected date of discharge: 11/12/16 <Adalgisa Gonzalez - Last Filed: 11/12/16 11:47> Hospital Course - Time spent with patient Time with patient DS: Greater than 30 minutes (45 min) Discharge Plan - Discharge Data Condition at Discharge: Stable Discharge Diet: heart healthy Activity: resume usual activities as tolerated, wear oxygen at all times (2 liters nc) Hygiene: no restrictions Weight Bearing at Discharge: full weight bearing Driving: not until seen by doctor Contact your physician if you experience:: fever over 101 - Forms/Instructions Additional Discharge Instructions: nebulizer machine for home Exam - Constitutional General appearance: normal weight, no acute distress - Respiratory Respiratory exam: Present: decreased breath sounds, wheezes - Cardiovascular Cardiovascular exam: Present: regular rate and rhythm. Absent: systolic murmur - GI/Abdominal GI/Abdominal exam: Present: normal bowel sounds, soft. Absent: tenderness
== END 2016-11-12 15:20 | disposition home or self-care (01) | DRG 190 ==
LOC: N.ED 09:56 → SUATTDRO 13:38 → N.EDINP 13:38 → N.2E 15:35
PROVIDERS: ADMIT Hospitalist; ATTEND Internal Medicine

== ENCOUNTER 2018-04-09 09:41 | Inpatient (IN) ==
[2018-04-09] MEDS ORDERED: methylPREDNISolone SOD SUC 125 MG/2 ML VIAL IV STA (10:04)
[2018-04-09] MEDS ORDERED: ALBUTEROL/IPRATROPIUM 3 ML NEB RESP TX STA ×2 (10:04→11:43)
[2018-04-09 10:30] LABS: Basophils # 0.1 10*3/uL (0.0-0.2); Basophils % 0.8 % (0.0-0.8); Hematocrit 46.7 VOL% (42.0-52.0); Hemoglobin 14.5 GM/DL (14.0-18.0); Immature Granulocytes % 0.5 %; Immature Granulocytes Absolute 0.03 #; Lymphocytes # 1.6 10*3/uL (1.4-4.0); Lymphocytes % 23.9 % (21.2-54.2); Mean Corpuscular Hemoglobin 27 PG (27-34); Mean Corpuscular Volume 86.3 FL (87-102); Mean Platelet Volume 10.2 FL (9.6-12.0); Monocytes # 1.4 10*3/uL (0.11-0.8); Monocytes % 21.7 % (1.7-12.7); Neutrophils # 3.5 10*3/uL (1.4-7.4); Neutrophils % 53.1 % (38.7-73.9); Platelet Count 146 T/CUMM (130-400); Red Blood Count 5.41 MC/CUMM (3.8-5.5); Red Cell Distribution Width 13.8 % (9.3-17.3); White Blood Count 6.5 T/CUMM (4-12)
[2018-04-09 10:34] LABS: ABG Base Excess 5.3 MMOL/L (-2.5-2.5); ABG Oxygen Saturation 91.2 % (95-100); ABG PCO2 55.1 MM HG (35-48); ABG PH 7.377 (7.35-7.45); ABG PO2 65.5 MM HG (80-95); ABG TCO2 27.9 MMOL/L (23-27)
[2018-04-09 10:38] LABS: INR 1.1; PT Patient Result 12.2 SECS; Partial Thromboplastin Time 32.1 SECS (0-40)
[2018-04-09 10:50] LABS: Band Neutrophils 3 % (0-10); Hypochromasia 1+; Lymphocytes 19 % (20-55); Platelet Estimate Adequate; Segmented Neutrophils 60 % (50-85); Total Cells Counted 100
[2018-04-09 10:54] LABS: Albumin 3.7 G/DL (3.4-5.0); Bilirubin,Total 0.4 MG/DL (0.2-1.0); Calcium 8.2 MG/DL (8.5-10.1); Osmolality,Calculated 280.4 MOS/KG (273-304); Potassium 3.5 MMOL/L (3.5-5.1); Total Protein 7.6 G/DL (6.4-8.3)
[2018-04-09 11:52] LABS: Apearance,Urine CLEAR (Clear); Bilirubin,Urine Negative (Negative); Blood, Urine Small mg/dL (Negative); Glucose,Urine (UA) 50 mg/dL (Negative); Hyaline Casts,Urine 1 /LPF (0-3); Ketones,Urine 5 mg/dL (Negative); Mucus,Urine Occasional /LPF (Occasional); Nitrite,Urine Negative (Negative); Protein,Urine 30 MG/DL; RBC,Urine <1 /HPF (0-4); Squamous Epithelial Cell,Urine Occasional /HPF (0-10); Urine Color Yellow (Yellow); Urine Specific Gravity 1.025 (1.001-1.035); WBC,Urine <1 /HPF (0-6)
[2018-04-09] MEDS ORDERED: ALBUTEROL 2.5 MG/3 ML NEB RESP TX PRN (12:54)
[2018-04-09] MEDS ORDERED: LACTULOSE 20 GM/30 ML UDCUP PO PRN (12:56)
[2018-04-09] MEDS ORDERED: ZALEPLON 5 MG CAPSULE PO PRN (12:56)
[2018-04-09] MEDS ORDERED: ACETAMINOPHEN 325 MG TABLET PO PRN (12:56)
[2018-04-09] MEDS ORDERED: MORPHINE 4 MG/1 ML VIAL IV PRN (12:56)
[2018-04-09] MEDS ORDERED: BISACODYL 5 MG TABLET PO PRN (12:56)
[2018-04-09] MEDS ORDERED: diphenhydrAMINE CAP 25 MG CAPSULE PO PRN (12:56)
[2018-04-09] MEDS ORDERED: ONDANSETRON 4 MG/2 ML VIAL IV PRN (12:56)
[2018-04-09] MEDS ORDERED: PROMETHAZINE 25 MG/1 ML VIAL IM PRN (12:56)
[2018-04-09] MEDS: ALBUTEROL/IPRATROPIUM 3 ML NEB RESP TX SCH ×2 (14:13→19:46)
[2018-04-09] MEDS ORDERED: GLUCAGON 1 MG VIAL IM PRN (14:15)
[2018-04-09] MEDS ORDERED: DEXTROSE 50% 25 GM/50 ML VIAL IV PRN (14:15)
[2018-04-09] MEDS: SODIUM CHLORIDE 0.45% 1,000 ML IV SCH (16:54)
[2018-04-09] MEDS: NICOTINE 21 MG/24 HR PATCH TRANSDERM SCH (17:00)
[2018-04-09] MEDS: HEPARIN 5,000 UNIT/1 ML VIAL SUBCUT SCH ×2 (17:05→22:00)
[2018-04-09] MEDS: methylPREDNISolone SOD SUC 40 MG/1 ML VIAL IV SCH ×2 (17:17→21:59)
[2018-04-09] MEDS: LEVOFLOXACIN INJ 750 MG in PREMIX 1 EACH IV SCH (17:22)
[2018-04-09] MEDS: INSULIN LISPRO 100 UNIT/ML SUBCUT SCH ×2 (17:23→22:00)
[2018-04-09] MEDS: THEOPHYLLINE ER 300 MG TABLET PO SCH (21:59)
[2018-04-09] MEDS: ATORVASTATIN 20 MG TABLET PO SCH (21:59)
[2018-04-09] MEDS: MONTELUKAST 10 MG TABLET PO SCH (22:00)
[2018-04-09] MEDS: guaiFENesin/DM ER 600-30 MG TABLET PO PRN (22:07)
[2018-04-10] MEDS: ALBUTEROL/IPRATROPIUM 3 ML NEB RESP TX SCH ×4 (01:19→19:24)
[2018-04-10] MEDS: methylPREDNISolone SOD SUC 40 MG/1 ML VIAL IV SCH ×4 (03:45→22:35)
[2018-04-10 05:12] LABS: Basophils % 0.1 % (0.0-0.8); Hematocrit 42.4 VOL% (42.0-52.0); Hemoglobin 13.2 GM/DL (14.0-18.0); Immature Granulocytes % 0.6 %; Immature Granulocytes Absolute 0.05 #; Lymphocytes # 1.1 10*3/uL (1.4-4.0); Mean Corpuscular HGB Conc 31.1 GM/DL (32-36); Mean Corpuscular Hemoglobin 27 PG (27-34); Mean Platelet Volume 10.2 FL (9.6-12.0); Monocytes # 0.4 10*3/uL (0.11-0.8); Monocytes % 5.4 % (1.7-12.7); Neutrophils # 6.5 10*3/uL (1.4-7.4); Neutrophils % 79.9 % (38.7-73.9); Platelet Count 153 T/CUMM (130-400); Red Blood Count 4.93 MC/CUMM (3.8-5.5); Red Cell Distribution Width 13.4 % (9.3-17.3); White Blood Count 8.2 T/CUMM (4-12)
[2018-04-10 05:32] LABS: Albumin 3.4 G/DL (3.4-5.0); Bilirubin,Total 0.8 MG/DL (0.2-1.0); Calcium 8.5 MG/DL (8.5-10.1); Osmolality,Calculated 279.8 MOS/KG (273-304); Potassium 3.4 MMOL/L (3.5-5.1); Risk Ratio 5.24; Total Protein 6.9 G/DL (6.4-8.3); VLDL CHOLESTEROL 29.2 MG/DL
[2018-04-10] MEDS: HEPARIN 5,000 UNIT/1 ML VIAL SUBCUT SCH ×3 (06:23→22:35)
[2018-04-10] MEDS: THEOPHYLLINE ER 300 MG TABLET PO SCH ×2 (09:53→22:34)
[2018-04-10] MEDS: SERTRALINE 100 MG TABLET PO SCH (09:53)
[2018-04-10] MEDS: amLODIPine 5 MG TABLET PO SCH (09:53)
[2018-04-10] MEDS: NICOTINE 21 MG/24 HR PATCH TRANSDERM SCH (09:54)
[2018-04-10] MEDS: PANTOPRAZOLE 40 MG TABLET PO SCH (09:54)
[2018-04-10] MEDS: INSULIN LISPRO 100 UNIT/ML SUBCUT SCH ×4 (10:06→22:34)
[2018-04-10] MEDS: NON-FORMULARY MEDICATION (Umeclidinium Brm/Vilanterol Tr [Anoro Ellipta] 1 PUFF) INH SCH (10:11)
[2018-04-10] MEDS: guaiFENesin/DM ER 600-30 MG TABLET PO PRN ×2 (10:32→22:34)
[2018-04-10] MEDS: buPROPion SR 150 MG TABLET PO SCH (12:26)
[2018-04-10] MEDS: DICYCLOMINE 20 MG TABLET PO SCH ×2 (12:26→22:34)
[2018-04-10] MEDS: SODIUM CHLORIDE 0.45% 1,000 ML IV SCH (12:32)
[2018-04-10] MEDS: POTASSIUM CHLORIDE 20 MEQ TABLET PO SCH (14:33)
[2018-04-10] MEDS: LEVOFLOXACIN INJ 750 MG in PREMIX 1 EACH IV SCH (14:43)
[2018-04-10] MEDS: MONTELUKAST 10 MG TABLET PO SCH (22:34)
[2018-04-10] MEDS: ATORVASTATIN 20 MG TABLET PO SCH (22:34)
[2018-04-11] MEDS: ALBUTEROL/IPRATROPIUM 3 ML NEB RESP TX SCH ×6 (01:46→23:57)
[2018-04-11] MEDS: methylPREDNISolone SOD SUC 40 MG/1 ML VIAL IV SCH ×4 (03:41→23:00)
[2018-04-11 04:53] LABS: Basophils % 0.1 % (0.0-0.8); Hematocrit 40.8 VOL% (42.0-52.0); Hemoglobin 12.5 GM/DL (14.0-18.0); Immature Granulocytes % 1.3 %; Immature Granulocytes Absolute 0.19 #; Lymphocytes # 1.1 10*3/uL (1.4-4.0); Lymphocytes % 7.7 % (21.2-54.2); Mean Corpuscular HGB Conc 30.6 GM/DL (32-36); Mean Corpuscular Hemoglobin 27 PG (27-34); Mean Corpuscular Volume 87.2 FL (87-102); Mean Platelet Volume 10.3 FL (9.6-12.0); Monocytes % 6.7 % (1.7-12.7); Neutrophils # 12.3 10*3/uL (1.4-7.4); Neutrophils % 84.2 % (38.7-73.9); Platelet Count 166 T/CUMM (130-400); Red Blood Count 4.68 MC/CUMM (3.8-5.5); Red Cell Distribution Width 13.3 % (9.3-17.3); White Blood Count 14.6 T/CUMM (4-12)
[2018-04-11 05:25] LABS: Alanine Aminotransferase 25 U/L (16-61); Albumin 3.1 G/DL (3.4-5.0); Alkaline Phosphatase 92 U/L (45-117); Aspartate Amino Transferase 21 U/L (0-37); Bilirubin,Total < 0.39 MG/DL (0.2-1.0); Blood Urea Nitrogen 15 MG/DL (7-18); Calcium 8.1 MG/DL (8.5-10.1); Cholesterol 141 MG/DL (50-200); Glucose 192 MG/DL (74-106); HDL Cholesterol 26 MG/DL (40-60); Osmolality,Calculated 282.5 MOS/KG (273-304); Potassium 3.2 MMOL/L (3.5-5.1); Risk Ratio 5.42; Sodium 139 MMOL/L (136-145); Total Protein 6.5 G/DL (6.4-8.3); Triglycerides 130 MG/DL (2-150)
[2018-04-11] MEDS ORDERED: POTASSIUM CHLORIDE 20 MEQ TABLET PO ONE (08:51)
[2018-04-11] MEDS: INSULIN LISPRO 100 UNIT/ML SUBCUT SCH ×4 (10:50→22:58)
[2018-04-11] MEDS: HEPARIN 5,000 UNIT/1 ML VIAL SUBCUT SCH (10:51)
[2018-04-11] MEDS: NICOTINE 21 MG/24 HR PATCH TRANSDERM SCH (10:52)
[2018-04-11] MEDS: amLODIPine 5 MG TABLET PO SCH (10:52)
[2018-04-11] MEDS: THEOPHYLLINE ER 300 MG TABLET PO SCH ×2 (10:52→22:56)
[2018-04-11] MEDS: DICYCLOMINE 20 MG TABLET PO SCH ×2 (10:52→22:58)
[2018-04-11] MEDS: PANTOPRAZOLE 40 MG TABLET PO SCH (10:52)
[2018-04-11] MEDS: NON-FORMULARY MEDICATION (Umeclidinium Brm/Vilanterol Tr [Anoro Ellipta] 1 PUFF) INH SCH (10:53)
[2018-04-11] MEDS: buPROPion SR 150 MG TABLET PO SCH ×2 (10:53→22:57)
[2018-04-11] MEDS: SERTRALINE 100 MG TABLET PO SCH (10:54)
[2018-04-11] MEDS: SODIUM CHLORIDE 0.45% 1,000 ML IV SCH (12:10)
[2018-04-11] MEDS: RIVAROXABAN 20 MG TABLET PO SCH (13:03)
[2018-04-11] MEDS: POTASSIUM CHLORIDE 20 MEQ TABLET PO SCH (14:09)
[2018-04-11] MEDS: ARFORMOTEROL 15 MCG/2 ML NEB RESP TX SCH ×2 (14:10→19:14)
[2018-04-11] MEDS: BUDESONIDE 0.5 MG/2 ML NEB RESP TX SCH ×2 (14:10→19:14)
[2018-04-11] MEDS: LEVOFLOXACIN INJ 750 MG in PREMIX 1 EACH IV SCH (15:50)
[2018-04-11] MEDS: MONTELUKAST 10 MG TABLET PO SCH (22:56)
[2018-04-11] MEDS: ATORVASTATIN 20 MG TABLET PO SCH (22:57)
[2018-04-12] MEDS: ALBUTEROL/IPRATROPIUM 3 ML NEB RESP TX SCH ×6 (03:25→22:30)
[2018-04-12] MEDS: methylPREDNISolone SOD SUC 40 MG/1 ML VIAL IV SCH ×4 (03:35→21:00)
[2018-04-12] MEDS: BUDESONIDE 0.5 MG/2 ML NEB RESP TX SCH ×2 (07:20→19:29)
[2018-04-12] MEDS: ARFORMOTEROL 15 MCG/2 ML NEB RESP TX SCH ×2 (07:35→19:29)
[2018-04-12] MEDS: INSULIN LISPRO 100 UNIT/ML SUBCUT SCH ×4 (09:37→21:00)
[2018-04-12] MEDS: buPROPion SR 150 MG TABLET PO SCH (09:38)
[2018-04-12] MEDS: NICOTINE 21 MG/24 HR PATCH TRANSDERM SCH (09:38)
[2018-04-12] MEDS: THEOPHYLLINE ER 300 MG TABLET PO SCH ×2 (09:38→21:00)
[2018-04-12] MEDS: PANTOPRAZOLE 40 MG TABLET PO SCH (09:38)
[2018-04-12] MEDS: amLODIPine 5 MG TABLET PO SCH (09:39)
[2018-04-12] MEDS: POTASSIUM CHLORIDE 20 MEQ TABLET PO SCH (09:39)
[2018-04-12] MEDS: DICYCLOMINE 20 MG TABLET PO SCH ×2 (09:39→21:00)
[2018-04-12] MEDS: RIVAROXABAN 20 MG TABLET PO SCH (09:39)
[2018-04-12] MEDS: SERTRALINE 100 MG TABLET PO SCH (09:39)
[2018-04-12] MEDS: NON-FORMULARY MEDICATION (Umeclidinium Brm/Vilanterol Tr [Anoro Ellipta] 1 PUFF) INH SCH (09:40)
[2018-04-12] MEDS: SODIUM CHLORIDE 0.45% 1,000 ML IV SCH (09:45)
[2018-04-12] MEDS ORDERED: buPROPion SR 150 MG TABLET PO SCH (11:06)
[2018-04-12] MEDS: buPROPion SR 100 MG TABLET PO SCH ×2 (13:47→21:00)
[2018-04-12] MEDS: LEVOFLOXACIN INJ 750 MG in PREMIX 1 EACH IV SCH (14:16)
[2018-04-12] MEDS: ATORVASTATIN 20 MG TABLET PO SCH (20:59)
[2018-04-12] MEDS: MONTELUKAST 10 MG TABLET PO SCH (21:00)
[2018-04-13] MEDS: ALBUTEROL/IPRATROPIUM 3 ML NEB RESP TX SCH ×6 (02:26→23:05)
[2018-04-13] MEDS: methylPREDNISolone SOD SUC 40 MG/1 ML VIAL IV SCH ×4 (03:41→20:44)
[2018-04-13 05:42] LABS: Basophils % 0.1 % (0.0-0.8); Hematocrit 39.7 VOL% (42.0-52.0); Hemoglobin 12.2 GM/DL (14.0-18.0); Immature Granulocytes % 2.3 %; Immature Granulocytes Absolute 0.23 #; Lymphocytes % 9.9 % (21.2-54.2); Mean Corpuscular HGB Conc 30.7 GM/DL (32-36); Mean Corpuscular Hemoglobin 27 PG (27-34); Mean Corpuscular Volume 87.3 FL (87-102); Mean Platelet Volume 10.6 FL (9.6-12.0); Monocytes # 0.5 10*3/uL (0.11-0.8); Monocytes % 5.2 % (1.7-12.7); Neutrophils # 8.1 10*3/uL (1.4-7.4); Neutrophils % 82.5 % (38.7-73.9); Platelet Count 156 T/CUMM (130-400); Red Blood Count 4.55 MC/CUMM (3.8-5.5); Red Cell Distribution Width 13.5 % (9.3-17.3); White Blood Count 9.9 T/CUMM (4-12)
[2018-04-13 06:06] LABS: Calcium 8.3 MG/DL (8.5-10.1); Osmolality,Calculated 283.4 MOS/KG (273-304); Potassium 3.7 MMOL/L (3.5-5.1)
[2018-04-13] MEDS: BUDESONIDE 0.5 MG/2 ML NEB RESP TX SCH ×2 (07:11→19:16)
[2018-04-13] MEDS: buPROPion SR 100 MG TABLET PO SCH ×2 (09:25→20:44)
[2018-04-13] MEDS: INSULIN LISPRO 100 UNIT/ML SUBCUT SCH ×4 (09:25→20:43)
[2018-04-13] MEDS: NICOTINE 21 MG/24 HR PATCH TRANSDERM SCH (09:25)
[2018-04-13] MEDS: SERTRALINE 100 MG TABLET PO SCH (09:26)
[2018-04-13] MEDS: POTASSIUM CHLORIDE 20 MEQ TABLET PO SCH (09:26)
[2018-04-13] MEDS: PANTOPRAZOLE 40 MG TABLET PO SCH (09:26)
[2018-04-13] MEDS: SODIUM CHLORIDE 0.45% 1,000 ML IV SCH (09:26)
[2018-04-13] MEDS: THEOPHYLLINE ER 300 MG TABLET PO SCH ×2 (09:26→20:44)
[2018-04-13] MEDS: RIVAROXABAN 20 MG TABLET PO SCH (09:26)
[2018-04-13] MEDS: DICYCLOMINE 20 MG TABLET PO SCH ×2 (09:26→20:44)
[2018-04-13] MEDS: amLODIPine 5 MG TABLET PO SCH (09:26)
[2018-04-13] MEDS: NON-FORMULARY MEDICATION (Umeclidinium Brm/Vilanterol Tr [Anoro Ellipta] 1 PUFF) INH SCH (09:27)
[2018-04-13] MEDS: ARFORMOTEROL 15 MCG/2 ML NEB RESP TX SCH ×2 (10:52→19:15)
[2018-04-13] MEDS: LEVOFLOXACIN INJ 750 MG in PREMIX 1 EACH IV SCH (15:48)
[2018-04-13] MEDS: ATORVASTATIN 20 MG TABLET PO SCH (20:44)
[2018-04-13] MEDS: MONTELUKAST 10 MG TABLET PO SCH (20:44)
[2018-04-14] MEDS: ALBUTEROL/IPRATROPIUM 3 ML NEB RESP TX SCH ×5 (02:52→19:00)
[2018-04-14] MEDS: methylPREDNISolone SOD SUC 40 MG/1 ML VIAL IV SCH ×4 (02:55→21:39)
[2018-04-14] MEDS: SODIUM CHLORIDE 0.45% 1,000 ML IV SCH ×2 (05:38→21:34)
[2018-04-14] MEDS: BUDESONIDE 0.5 MG/2 ML NEB RESP TX SCH ×2 (07:00→19:00)
[2018-04-14] MEDS ORDERED: GLYCOPYRROLATE 0.4 MG/2 ML VIAL IM ONE (07:00)
[2018-04-14] MEDS ORDERED: PROMETHAZINE 25 MG/1 ML VIAL IM ONE (07:00)
[2018-04-14] MEDS ORDERED: MEPERIDINE 50 MG/1 ML VIAL IM ONE (07:00)
[2018-04-14] MEDS: ARFORMOTEROL 15 MCG/2 ML NEB RESP TX SCH ×2 (07:00→19:00)
[2018-04-14] MEDS ORDERED: LIDOCAINE 2% 20 ML VIAL RESP TX ONE (07:30)
[2018-04-14] MEDS ORDERED: LIDOCAINE 2% VISCOUS 100 ML BOTTLE SWISH/SPIT ONE (07:30)
[2018-04-14] MEDS ORDERED: MIDAZOLAM 2 MG/2 ML VIAL IV ONE (07:30)
[2018-04-14] MEDS ORDERED: LIDOCAINE 1% 20 ML VIAL MISC INJ ONE (07:30)
[2018-04-14] MEDS: INSULIN LISPRO 100 UNIT/ML SUBCUT SCH ×4 (07:32→21:35)
[2018-04-14] MEDS: SERTRALINE 100 MG TABLET PO SCH (09:09)
[2018-04-14] MEDS: buPROPion SR 100 MG TABLET PO SCH ×2 (09:09→21:34)
[2018-04-14] MEDS: POTASSIUM CHLORIDE 20 MEQ TABLET PO SCH (09:09)
[2018-04-14] MEDS: RIVAROXABAN 20 MG TABLET PO SCH (09:09)
[2018-04-14] MEDS: THEOPHYLLINE ER 300 MG TABLET PO SCH ×2 (09:09→21:35)
[2018-04-14] MEDS: DICYCLOMINE 20 MG TABLET PO SCH ×2 (09:09→21:35)
[2018-04-14] MEDS: amLODIPine 5 MG TABLET PO SCH (09:09)
[2018-04-14] MEDS: NICOTINE 21 MG/24 HR PATCH TRANSDERM SCH (09:10)
[2018-04-14] MEDS: PANTOPRAZOLE 40 MG TABLET PO SCH (09:10)
[2018-04-14] MEDS ORDERED: MIDAZOLAM 2 MG/2 ML VIAL ONE (09:12)
[2018-04-14] MEDS: NON-FORMULARY MEDICATION (Umeclidinium Brm/Vilanterol Tr [Anoro Ellipta] 1 PUFF) INH SCH (09:15)
[2018-04-14] MEDS: LEVOFLOXACIN INJ 750 MG in PREMIX 1 EACH IV SCH (14:25)
[2018-04-14] MEDS ORDERED: TAMSULOSIN 0.4 MG CAPSULE PO SCH (21:00)
[2018-04-14] MEDS: ATORVASTATIN 20 MG TABLET PO SCH (21:34)
[2018-04-14] MEDS: MONTELUKAST 10 MG TABLET PO SCH (21:35)
[2018-04-15] MEDS: ALBUTEROL/IPRATROPIUM 3 ML NEB RESP TX SCH ×4 (00:53→10:47)
[2018-04-15] MEDS: methylPREDNISolone SOD SUC 40 MG/1 ML VIAL IV SCH ×2 (03:41→09:03)
[2018-04-15] MEDS: BUDESONIDE 0.5 MG/2 ML NEB RESP TX SCH (07:19)
[2018-04-15] MEDS: ARFORMOTEROL 15 MCG/2 ML NEB RESP TX SCH (07:19)
[2018-04-15 08:39] VITALS: BP 138/91
[2018-04-15] MEDS: POTASSIUM CHLORIDE 20 MEQ TABLET PO SCH (08:53)
[2018-04-15] MEDS: INSULIN LISPRO 100 UNIT/ML SUBCUT SCH ×2 (09:02→12:00)
[2018-04-15] MEDS: DICYCLOMINE 20 MG TABLET PO SCH (09:03)
[2018-04-15] MEDS: THEOPHYLLINE ER 300 MG TABLET PO SCH (09:03)
[2018-04-15] MEDS: PANTOPRAZOLE 40 MG TABLET PO SCH (09:03)
[2018-04-15] MEDS: NICOTINE 21 MG/24 HR PATCH TRANSDERM SCH (09:03)
[2018-04-15] MEDS: amLODIPine 5 MG TABLET PO SCH (09:03)
[2018-04-15] MEDS: RIVAROXABAN 20 MG TABLET PO SCH (09:04)
[2018-04-15] MEDS: NON-FORMULARY MEDICATION (Umeclidinium Brm/Vilanterol Tr [Anoro Ellipta] 1 PUFF) INH SCH (09:04)
[2018-04-15] MEDS: SERTRALINE 100 MG TABLET PO SCH (09:04)
[2018-04-15] MEDS: buPROPion SR 100 MG TABLET PO SCH (09:04)
== END 2018-04-15 12:10 | disposition home or self-care (01) | DRG 190 ==
LOC: N.ED 09:41 → N.EDINP 09:41 → N.2E 13:53 → SUATTDRO 04-11 11:29
PROVIDERS: ADMIT Hospitalist; ATTEND Internal Medicine

== ENCOUNTER 2018-06-18 06:54 | Observation (INO) ==
[2018-06-18] MEDS ORDERED: ASPIRIN 325 MG TABLET PO STA (07:09)
[2018-06-18] MEDS ORDERED: NITROGLYCERIN 2% OINT 1 INCH/GM PACK TOP STA (07:09)
[2018-06-18] MEDS ORDERED: ALUM/MAG/SIMETH/LIDO VISC 1:1 30 ML BOTTLE PO STA (07:09)
[2018-06-18] MEDS ORDERED: MORPHINE 4 MG/1 ML VIAL IV PRN (07:09)
[2018-06-18] MEDS ORDERED: ONDANSETRON 4 MG/2 ML VIAL IV PRN ×2 (07:09→11:42)
[2018-06-18] MEDS ORDERED: ASPIRIN 325 MG TABLET ONE (07:09)
[2018-06-18] MEDS ORDERED: ENOXAPARIN 100 MG/ML SYRINGE SUBCUT STA (07:09)
[2018-06-18] MEDS ORDERED: ENOXAPARIN 120 MG/0.8 ML SYRINGE SUBCUT ONE (07:18)
[2018-06-18 07:26] LABS: PT Patient Result 10.7 SECS; Partial Thromboplastin Time 27.5 SECS (0-40)
[2018-06-18 07:32] LABS: Alanine Aminotransferase 22 U/L (16-61); Albumin 3.8 G/DL (3.4-5.0); Alkaline Phosphatase 128 U/L (45-117); Aspartate Amino Transferase 16 U/L (0-37); Bilirubin,Total < 0.39 MG/DL (0.2-1.0); Blood Urea Nitrogen 7 MG/DL (7-18); Calcium 8.4 MG/DL (8.5-10.1); Glucose 114 MG/DL (74-106); Osmolality,Calculated 277.4 MOS/KG (273-304); Total Protein 6.8 G/DL (6.4-8.3)
[2018-06-18 07:39] LABS: Basophils # 0.1 10*3/uL (0.0-0.2); Eosinophils # 0.2 10*3/uL (0.0-0.87); Eosinophils % 2.6 % (0.00-10.9); Hematocrit 42.1 VOL% (42.0-52.0); Immature Granulocytes % 0.3 %; Immature Granulocytes Absolute 0.02 #; Lymphocytes # 2.1 10*3/uL (1.4-4.0); Lymphocytes % 36.5 % (21.2-54.2); Mean Corpuscular HGB Conc 30.2 GM/DL (32-36); Mean Corpuscular Volume 89.4 FL (87-102); Mean Platelet Volume 10.1 FL (9.6-12.0); Monocytes % 8.7 % (1.7-12.7); Neutrophils % 50.9 % (38.7-73.9); Platelet Count 189 T/CUMM (130-400); Red Blood Count 4.71 MC/CUMM (3.8-5.5); Red Cell Distribution Width 14.8 % (9.3-17.3); White Blood Count 5.9 T/CUMM (4-12)
[2018-06-18 07:41] LABS: Hemoglobin 12.7 GM/DL (14.0-18.0)
[2018-06-18 08:08] LABS: Apearance,Urine CLEAR (Clear); Bacteria,Urine Occasional /HPF (Few); Bilirubin,Urine Negative (Negative); Blood, Urine Negative (Negative); Glucose,Urine (UA) Negative (Negative); Ketones,Urine Negative (Negative); Nitrite,Urine Negative (Negative); Protein,Urine Negative; RBC,Urine 1 /HPF (0-4); Squamous Epithelial Cell,Urine Occasional /HPF (0-10); Urine Color Straw (Yellow); Urine Specific Gravity 1.009 (1.001-1.035); Urine Urobilinogen < 2.0 EU/DL (0.2-1.0)
[2018-06-18 08:16] LABS: Barbiturates Screen,Urine Negative (Negative); Benzodiazepines Screen,Urine Negative (Negative); Cannabinoid Screen,Urine Negative (Negative); Opiate Screen,Urine Negative (Negative); Phencyclidine Screen,Urine Negative (Negative)
[2018-06-18] MEDS ORDERED: ZALEPLON 5 MG CAPSULE PO PRN (11:42)
[2018-06-18] MEDS ORDERED: DOCUSATE SODIUM 100 MG CAPSULE PO PRN (11:42)
[2018-06-18] MEDS ORDERED: GLUCAGON 1 MG VIAL IM PRN (11:42)
[2018-06-18] MEDS ORDERED: DEXTROSE 50% 25 GM/50 ML SYRINGE IV PRN (11:42)
[2018-06-18] MEDS ORDERED: NICOTINE 21 MG/24 HR PATCH TRANSDERM PRN (11:42)
[2018-06-18] MEDS ORDERED: ACETAMINOPHEN 325 MG TABLET PO PRN (11:42)
[2018-06-18] MEDS ORDERED: ALBUTEROL 2.5 MG/3 ML NEB RESP TX PRN (12:08)
[2018-06-18] MEDS: TAMSULOSIN 0.4 MG CAPSULE PO SCH (13:33)
[2018-06-18] MEDS: amLODIPine 5 MG TABLET PO SCH (13:33)
[2018-06-18] MEDS: PANTOPRAZOLE 40 MG TABLET PO SCH (13:34)
[2018-06-18] MEDS: ALBUTEROL/IPRATROPIUM 3 ML NEB RESP TX SCH ×2 (13:45→21:08)
[2018-06-18] MEDS: buPROPion SR 100 MG TABLET PO SCH ×2 (16:42→20:59)
[2018-06-18] MEDS: NABUMETONE 500 MG TABLET PO SCH ×2 (16:42→21:00)
[2018-06-18] MEDS: THEOPHYLLINE ER 300 MG TABLET PO SCH ×2 (16:42→21:00)
[2018-06-18] MEDS: SERTRALINE 100 MG TABLET PO SCH (16:42)
[2018-06-18] MEDS: INSULIN LISPRO 100 UNIT/ML SUBCUT SCH ×2 (18:00→20:38)
[2018-06-18] MEDS ORDERED: ATORVASTATIN 20 MG TABLET PO SCH (21:00)
[2018-06-18] MEDS ORDERED: MONTELUKAST 10 MG TABLET PO SCH (21:00)
[2018-06-19] MEDS: ALBUTEROL/IPRATROPIUM 3 ML NEB RESP TX SCH ×3 (00:35→11:50)
[2018-06-19 06:04] LABS: Basophils % 0.8 % (0.0-0.8); Eosinophils # 0.1 10*3/uL (0.0-0.87); Eosinophils % 2.2 % (0.00-10.9); Hematocrit 41.4 VOL% (42.0-52.0); Hemoglobin 12.5 GM/DL (14.0-18.0); Immature Granulocytes % 0.2 %; Immature Granulocytes Absolute 0.01 #; Lymphocytes # 1.8 10*3/uL (1.4-4.0); Lymphocytes % 35.3 % (21.2-54.2); Mean Corpuscular HGB Conc 30.2 GM/DL (32-36); Mean Corpuscular Volume 89.2 FL (87-102); Monocytes % 9.5 % (1.7-12.7); Platelet Count 190 T/CUMM (130-400); Red Blood Count 4.64 MC/CUMM (3.8-5.5); Red Cell Distribution Width 14.6 % (9.3-17.3); White Blood Count 5.1 T/CUMM (4-12)
[2018-06-19 06:08] LABS: Calcium 8.6 MG/DL (8.5-10.1); Osmolality,Calculated 277.4 MOS/KG (273-304)
[2018-06-19 06:18] LABS: Albumin 3.2 G/DL (3.4-5.0); Bilirubin,Total 0.7 MG/DL (0.2-1.0); Calcium 8.8 MG/DL (8.5-10.1); Osmolality,Calculated 279.3 MOS/KG (273-304); Risk Ratio 3.58; Total Protein 6.3 G/DL (6.4-8.3); VLDL CHOLESTEROL 18.8 MG/DL
[2018-06-19] MEDS ORDERED: ENOXAPARIN 40 MG/0.4 ML SYRINGE SUBCUT SCH (09:00)
[2018-06-19] MEDS ORDERED: LISINOPRIL 5 MG TABLET PO SCH (09:00)
[2018-06-19] MEDS ORDERED: ASPIRIN EC 81 MG TABLET PO SCH (09:00)
[2018-06-19] MEDS: THEOPHYLLINE ER 300 MG TABLET PO SCH (09:56)
[2018-06-19] MEDS: PANTOPRAZOLE 40 MG TABLET PO SCH (09:56)
[2018-06-19] MEDS: INSULIN LISPRO 100 UNIT/ML SUBCUT SCH (09:56)
[2018-06-19] MEDS: SERTRALINE 100 MG TABLET PO SCH (09:56)
[2018-06-19] MEDS: TAMSULOSIN 0.4 MG CAPSULE PO SCH (09:56)
[2018-06-19] MEDS: amLODIPine 5 MG TABLET PO SCH (09:56)
[2018-06-19] MEDS: buPROPion SR 100 MG TABLET PO SCH (09:57)
[2018-06-19] MEDS: NABUMETONE 500 MG TABLET PO SCH (09:57)
[2018-06-19 12:08] VITALS: BP 139/82
== END 2018-06-19 12:50 | disposition home or self-care (01) ==
LOC: EDUNIT# → N.EDINP 06:54 → N.ED 06:54 → N.TELEN 14:40
PROVIDERS: ADMIT Hospitalist; ATTEND Hospitalist

== ENCOUNTER 2020-11-26 09:11 | Inpatient (IN) ==
[2020-11-26] MEDS ORDERED: ALBUTEROL/IPRATROPIUM 3 ML NEB RESP TX ONE (09:35)
[2020-11-26] MEDS ORDERED: ALBUTEROL/IPRATROPIUM 3 ML NEB RESP TX STA (09:39)
[2020-11-26] MEDS ORDERED: methylPREDNISolone SOD SUC 40 MG/1 ML VIAL IV STA (09:39)
[2020-11-26 10:00] LABS: Basophils % 0.6 % (0.0-0.8); Eosinophils # 0.1 10*3/uL (0.0-0.87); Eosinophils % 1.2 % (0.00-10.9); Hematocrit 50.6 VOL% (42.0-52.0); Hemoglobin 14.8 GM/DL (14.0-18.0); Immature Granulocytes % 0.3 %; Immature Granulocytes Absolute 0.02 #; Lymphocytes # 1.4 10*3/uL (1.4-4.0); Lymphocytes % 19.9 % (21.2-54.2); Mean Corpuscular HGB Conc 29.2 GM/DL (32-36); Mean Corpuscular Volume 94.4 FL (87-102); Mean Platelet Volume 10.1 FL (9.6-12.0); Monocytes % 7.8 % (1.7-12.7); NRBC # 0.02 10*3/uL; Neutrophils % 70.2 % (38.7-73.9); Platelet Count 191 T/CUMM (130-400); Red Blood Count 5.36 MC/CUMM (3.8-5.5); Red Cell Distribution Width 18.9 % (9.3-17.3); White Blood Count 6.9 T/CUMM (4-12)
[2020-11-26 10:09] LABS: Albumin 3.7 G/DL (3.4-5.0); Bilirubin,Total 0.5 MG/DL (0.20-1.00); Calcium 9.2 MG/DL (8.5-10.1); Potassium 4.3 MMOL/L (3.5-5.1); Total Protein 7.1 G/DL (6.4-8.2)
[2020-11-26 10:18] LABS: Osmolality,Calculated 279.4 MOS/KG (273-304)
[2020-11-26] MEDS ORDERED: ALBUTEROL NEB SOLN 5 MG/ML 20 ML/BOTTLE CONT NEB STA (11:26)
[2020-11-26] MEDS ORDERED: ONDANSETRON 4 MG/2 ML VIAL IV PRN (14:53)
[2020-11-26] MEDS ORDERED: GLUCAGON 1 MG VIAL IM PRN (14:53)
[2020-11-26] MEDS ORDERED: SIMETHICONE CHEW 125 MG TABLET PO PRN (14:53)
[2020-11-26] MEDS ORDERED: hydrALAZINE 20 MG/1 ML VIAL IV PRN (14:53)
[2020-11-26] MEDS ORDERED: DOCUSATE SODIUM 100 MG CAPSULE PO PRN (14:53)
[2020-11-26] MEDS ORDERED: DEXTROSE 50% 25 GM/50 ML VIAL IV PRN (14:53)
[2020-11-26] MEDS ORDERED: ACETAMINOPHEN 325 MG TABLET PO PRN (14:53)
[2020-11-26] MEDS ORDERED: LACTULOSE 20 GM/30 ML UDCUP PO PRN (14:53)
[2020-11-26] MEDS ORDERED: ALBUTEROL/IPRATROPIUM 3 ML NEB RESP TX PRN (15:46)
[2020-11-26] MEDS ORDERED: MAGNESIUM SULF RIDER 2 GM/50 ML PREMIX IV ONE (15:53)
[2020-11-26] MEDS: methylPREDNISolone SOD SUC 125 MG/2 ML VIAL IV SCH ×2 (16:53→21:05)
[2020-11-26] MEDS: ENOXAPARIN 40 MG/0.4 ML SYRINGE SUBCUT SCH (16:53)
[2020-11-26] MEDS: LEVOFLOXACIN INJ 750 MG/150 ML PREMIX IV SCH (16:53)
[2020-11-26] MEDS ORDERED: ALBUTEROL 2.5 MG/3 ML NEB RESP TX SCH (19:00)
[2020-11-26] MEDS: ALBUTEROL/IPRATROPIUM 3 ML NEB RESP TX SCH (19:10)
[2020-11-26] MEDS: THEOPHYLLINE ER 300 MG TABLET PO SCH (23:40)
[2020-11-27] MEDS: ALBUTEROL/IPRATROPIUM 3 ML NEB RESP TX SCH ×4 (00:22→19:35)
[2020-11-27] MEDS: methylPREDNISolone SOD SUC 125 MG/2 ML VIAL IV SCH ×3 (05:01→15:16)
[2020-11-27 06:51] LABS: Basophils % 0.1 % (0.0-0.8); Hematocrit 49.3 VOL% (42.0-52.0); Immature Granulocytes % 1.1 %; Immature Granulocytes Absolute 0.12 #; Lymphocytes # 0.8 10*3/uL (1.4-4.0); Lymphocytes % 7.6 % (21.2-54.2); Mean Corpuscular HGB Conc 28.6 GM/DL (32-36); Mean Corpuscular Volume 94.3 FL (87-102); Mean Platelet Volume 10.7 FL (9.6-12.0); NRBC # 0.04 10*3/uL; Neutrophils % 89.2 % (38.7-73.9); Platelet Count 182 T/CUMM (130-400); Red Blood Count 5.23 MC/CUMM (3.8-5.5); Red Cell Distribution Width 18.5 % (9.3-17.3); White Blood Count 10.5 T/CUMM (4-12)
[2020-11-27 06:55] LABS: Hemoglobin 14.1 GM/DL (14.0-18.0)
[2020-11-27 06:59] LABS: Calcium 8.6 MG/DL (8.5-10.1); Osmolality,Calculated 284.3 MOS/KG (273-304); Potassium 4.5 MMOL/L (3.5-5.1); Risk Ratio 2.55; VLDL Cholesterol 16.6 MG/DL
[2020-11-27 08:02] LABS: Free T4 (Free Thyroxine) 0.74 NG/DL (0.76-1.46)
[2020-11-27] MEDS ORDERED: CHOLECALCIFEROL 5,000 UNIT TABLET PO SCH (09:00)
[2020-11-27] MEDS ORDERED: PANTOPRAZOLE 40 MG TABLET PO SCH (09:00)
[2020-11-27] MEDS: amLODIPine 5 MG TABLET PO SCH (09:17)
[2020-11-27] MEDS: TAMSULOSIN 0.4 MG CAPSULE PO SCH ×2 (09:18→21:19)
[2020-11-27] MEDS: THEOPHYLLINE ER 300 MG TABLET PO SCH ×2 (09:18→21:19)
[2020-11-27] MEDS: NICOTINE 21 MG/24 HR PATCH TRANSDERM SCH (09:19)
[2020-11-27] MEDS: buPROPion SR 100 MG TABLET PO SCH ×2 (09:20→21:18)
[2020-11-27] MEDS: lisinopriL 5 MG TABLET PO SCH (09:20)
[2020-11-27] MEDS: ENOXAPARIN 40 MG/0.4 ML SYRINGE SUBCUT SCH (15:17)
[2020-11-27] MEDS: LEVOFLOXACIN INJ 750 MG/150 ML PREMIX IV SCH (15:19)
[2020-11-27] MEDS: NABUMETONE 500 MG TABLET PO SCH ×2 (15:39→21:19)
[2020-11-27] MEDS: MONTELUKAST 10 MG TABLET PO SCH (21:18)
[2020-11-27] MEDS: PANTOPRAZOLE 40 MG TABLET PO SCH (21:18)
[2020-11-27] MEDS: ATORVASTATIN 20 MG TABLET PO SCH (21:19)
[2020-11-28] MEDS: methylPREDNISolone SOD SUC 40 MG/1 ML VIAL IV SCH ×4 (00:27→23:38)
[2020-11-28] MEDS: ALBUTEROL/IPRATROPIUM 3 ML NEB RESP TX SCH ×4 (00:34→19:40)
[2020-11-28 06:16] LABS: Calcium 8.9 MG/DL (8.5-10.1); Potassium 4.2 MMOL/L (3.5-5.1)
[2020-11-28 06:23] LABS: Osmolality,Calculated 284.4 MOS/KG (273-304)
[2020-11-28 06:24] LABS: Basophils % 0.1 % (0.0-0.8); Hematocrit 46.1 VOL% (42.0-52.0); Hemoglobin 13.4 GM/DL (14.0-18.0); Immature Granulocytes Absolute 0.13 #; Lymphocytes # 0.9 10*3/uL (1.4-4.0); Lymphocytes % 7.2 % (21.2-54.2); Mean Corpuscular HGB Conc 29.1 GM/DL (32-36); Mean Corpuscular Volume 94.1 FL (87-102); Mean Platelet Volume 10.1 FL (9.6-12.0); NRBC # 0.02 10*3/uL; Neutrophils % 87.7 % (38.7-73.9); Platelet Count 198 T/CUMM (130-400); Red Cell Distribution Width 17.8 % (9.3-17.3)
[2020-11-28 06:40] LABS: Hypochromasia 1+
[2020-11-28 06:41] LABS: Microcytosis 1+; Platelet Estimate Adequate; Target Cells Slight
[2020-11-28] MEDS: PANTOPRAZOLE 40 MG TABLET PO SCH ×2 (08:38→21:04)
[2020-11-28] MEDS: TAMSULOSIN 0.4 MG CAPSULE PO SCH ×2 (08:38→21:04)
[2020-11-28] MEDS: buPROPion SR 100 MG TABLET PO SCH ×2 (08:38→21:04)
[2020-11-28] MEDS: THEOPHYLLINE ER 300 MG TABLET PO SCH ×2 (08:38→21:04)
[2020-11-28] MEDS: NICOTINE 21 MG/24 HR PATCH TRANSDERM SCH (08:38)
[2020-11-28] MEDS: lisinopriL 5 MG TABLET PO SCH (08:39)
[2020-11-28] MEDS: amLODIPine 5 MG TABLET PO SCH (08:41)
[2020-11-28] MEDS: NABUMETONE 500 MG TABLET PO SCH ×2 (10:55→21:04)
[2020-11-28] MEDS: ENOXAPARIN 40 MG/0.4 ML SYRINGE SUBCUT SCH (15:25)
[2020-11-28] MEDS: LEVOFLOXACIN INJ 750 MG/150 ML PREMIX IV SCH (15:25)
[2020-11-28] MEDS: MONTELUKAST 10 MG TABLET PO SCH (21:04)
[2020-11-28] MEDS: ATORVASTATIN 20 MG TABLET PO SCH (21:05)
[2020-11-29] MEDS: ALBUTEROL/IPRATROPIUM 3 ML NEB RESP TX SCH ×2 (00:58→07:12)
[2020-11-29 06:04] LABS: Basophils % 0.1 % (0.0-0.8); Hematocrit 46.2 VOL% (42.0-52.0); Hemoglobin 13.9 GM/DL (14.0-18.0); Immature Granulocytes % 1.2 %; Immature Granulocytes Absolute 0.13 #; Lymphocytes # 0.7 10*3/uL (1.4-4.0); Lymphocytes % 6.5 % (21.2-54.2); Mean Corpuscular HGB Conc 30.1 GM/DL (32-36); Mean Corpuscular Volume 92.8 FL (87-102); Mean Platelet Volume 10.3 FL (9.6-12.0); Monocytes % 4.7 % (1.7-12.7); NRBC # 0.02 10*3/uL; Neutrophils % 87.5 % (38.7-73.9); Platelet Count 185 T/CUMM (130-400); Red Blood Count 4.98 MC/CUMM (3.8-5.5); Red Cell Distribution Width 17.3 % (9.3-17.3); White Blood Count 11.1 T/CUMM (4-12)
[2020-11-29 06:31] LABS: Calcium 8.7 MG/DL (8.5-10.1); Potassium 4.1 MMOL/L (3.5-5.1)
[2020-11-29 06:33] LABS: Osmolality,Calculated 288.1 MOS/KG (273-304)
[2020-11-29] MEDS: lisinopriL 5 MG TABLET PO SCH (08:46)
[2020-11-29] MEDS: amLODIPine 5 MG TABLET PO SCH (08:47)
[2020-11-29] MEDS: NABUMETONE 500 MG TABLET PO SCH (08:47)
[2020-11-29] MEDS: THEOPHYLLINE ER 300 MG TABLET PO SCH (08:47)
[2020-11-29] MEDS: TAMSULOSIN 0.4 MG CAPSULE PO SCH (08:47)
[2020-11-29] MEDS: PANTOPRAZOLE 40 MG TABLET PO SCH (08:47)
[2020-11-29] MEDS: buPROPion SR 100 MG TABLET PO SCH (08:48)
[2020-11-29] MEDS: NICOTINE 21 MG/24 HR PATCH TRANSDERM SCH (08:48)
[2020-11-29] MEDS: methylPREDNISolone SOD SUC 40 MG/1 ML VIAL IV SCH (08:50)
[2020-11-29 11:49] VITALS: BP 141/94
[2020-11-30 23:46] LABS: Specimen Source SPUTUM
== END 2020-11-29 13:55 | disposition home or self-care (01) | DRG 192 ==
LOC: N.ED 09:11 → INTOOBSV 14:11 → N.EDINP 14:11 → OBSVTOIN 14:11 → N.3E 15:00
PROVIDERS: ADMIT Internal Medicine; ATTEND Internal Medicine